=== PATIENT | male | born 1995 | race African-American/Black ===

== ENCOUNTER 2018-10-16 07:09 | Emergency (ER) | payer OTHER ==
[~2018-10-16] VITALS: Ht 177.8 cm; Wt 81.6 kg
[2018-10-16 07:20] VITALS: BP 142/73
== END 2018-10-16 08:24 | disposition home or self-care (01) ==
LOC: ER 07:09
DX: M25.512 Pain in left shoulder (principal); V43.52XA Car driver injured in collision with other type car in traffic accident, initial encounter; Y93.89 Activity, other specified; Y99.8 Other external cause status; Y92.410 Unspecified street and highway as the place of occurrence of the external cause